=== PATIENT | male | born 1980 | race Caucasian/White ===

== ENCOUNTER 2019-08-02 13:17 | Emergency (ER) | payer MEDICAID ==
[~2019-08-02] VITALS: Ht 182.9 cm; Wt 88.9 kg
[2019-08-02 13:44] VITALS: BP_SYST 118
--- NOTE | 2019-08-02 13:52 | NUR ---
Placed in room 5. Placed on cardiac rehabilitation program director, blood pressure machine and pulse oximeter. To gown for exam. Side rails up. Report given to OLMAN Harris.
--- NOTE | 2019-08-02 14:00 | NUR ---
pt arrives from home w/ c/o cough, fever, and sore throat. Will continue to monitor.
--- NOTE | 2019-08-02 14:00 | NUR ---
ER at bedside examining patient.
--- NOTE | 2019-08-02 14:06 | NUR ---
flu swab collected and sent to the lab
--- NOTE | 2019-08-02 14:10 | NUR ---
pt getting a x-ray at the bedside.
[2019-08-02] MEDS ORDERED: ACETAMINOPHEN 500 MG TABLET PO ONE (14:15)
[2019-08-02] MEDS ORDERED: KETOROLAC TROMETHAMINE 60 MG/2 ML VIAL IM ONE (14:15)
--- NOTE | 2019-08-02 14:20 | NUR ---
medicated the pt w/ Toradol and tylenol per MD order.
[2019-08-02 14:39] LABS: STREPTOCOCCUS A SCREEN (RAPID) NEGATIVE (NEGATIVE)
[2019-08-02 14:48] LABS: INFLUENZA A&B ANTIGEN SCREEN NEGATIVE FOR A & B (NEGATIVE)
--- NOTE | 2019-08-02 16:45 | NUR ---
COVID-19 nasal and oralpharyngeal swabs collected and transported to the lab
[2019-08-02 16:56] VITALS: BP_SYST 106
--- NOTE | 2019-08-02 16:58 | NUR ---
Patient given written and verbal discharge instructions and verbalizes understanding. ER MD discussed with patient the results and treatment provided. Patient in stable condition. ID arm band removed. Rx of Zithromax, tamiflu, and motrin given. Patient educated on pain management and to follow up with PMD. Pain Scale 0/10. Opportunity for questions provided and answered. Medication side effect fact sheet provided. Addendum: 08/02/19 at 1700 by MYRON patient instructed to self quarantine until further notice.
== END 2019-08-02 16:56 | disposition home or self-care (01) ==
LOC: SED 13:17
DX: B34.9 Viral infection, unspecified (principal); J45.909 Unspecified asthma, uncomplicated
CPT/HCPCS: 71045; 86308; 86403; 86710; 87081; 96372; 99284; J1885; 36415

== ENCOUNTER 2019-08-06 11:21 | Emergency (ER) | payer MEDICAID ==
[~2019-08-06] VITALS: Ht 182.9 cm; Wt 88.9 kg
[2019-08-06 11:21] VITALS: BP_SYST 116
--- NOTE | 2019-08-06 11:21 | NUR ---
Patient to ER bed 7 to gown for evaluation. Side rails up. Report given to OLMAN Alfred.
--- NOTE | 2019-08-06 11:24 | NUR ---
Patient arrived via POV, AAOx4, and ambulatory with steady gait. Patient states he was seen on 08/02/2019 regarding persistent fever, which occurred sudden onset. Patient was given influenza screening, strep screening, and Covid-19 screening with no results as of yet. Patient notes for the past 2 days, he has had blood tinged sputum upon waking and coughing. No night sweats or recent weight loss noted. Patient states he was in [facility] in [place] for the past 4 years. Patient states he had a screening questionnaire in group home related to TB, but not PPD test performed. MD aware of concerns. Will continue to follow up and monitor.
--- NOTE | 2019-08-06 11:29 | NUR ---
ER at bedside examining patient.
[2019-08-06 12:22] LABS: BASOPHILS # (AUTO) 0.1 K/uL (0.0-0.2); BASOPHILS % (AUTO) 1.3 % (0.0-2.0); EOSINOPHILS # (AUTO) 0.4 K/uL (0.0-0.4); EOSINOPHILS % (AUTO) 4.8 % (0.0-4.0); HEMATOCRIT 37.3 % (36-54); HEMOGLOBIN 12.1 g/dL (14.0-18.0); LYMPHOCYTES # (AUTO) 1.8 K/uL (1.0-5.5); LYMPHOCYTES % (AUTO) 21.3 % (20.5-51.5); MEAN CORPUSCULAR HEMOGLOBIN 22 pg (27-31); MEAN CORPUSCULAR HGB CONC 32 % (32-36); MEAN CORPUSCULAR VOLUME 68 fL (79.0-98.0); MONOCYTES # (AUTO) 0.7 K/uL (0.0-1.0); MONOCYTES % (AUTO) 7.8 % (1.7-9.3); NEUTROPHILS # (AUTO) 5.5 K/uL (1.8-7.7); NEUTROPHILS % (AUTO) 64.8 % (40.0-70.0); PLATELET COUNT (AUTO) 266 K/uL (130-430); RED BLOOD CELL COUNT(AUTO) 5.49 MIL/uL (4.2-6.2); RED CELL DISTRIBUTION WIDTH 15.3 % (9.0-15.0); WHITE BLOOD COUNT (AUTO) 8.5 K/uL (4.8-10.8)
[2019-08-06 12:35] LABS: CALCIUM 9.5 mg/dL (8.4-11.0); CREATININE 1.08 mg/dL (0.55-1.30); POTASSIUM 3.9 mmol/L (3.5-5.1)
[2019-08-06 12:43] VITALS: BP_SYST 115
--- NOTE | 2019-08-06 12:43 | NUR ---
Patient given written and verbal discharge instructions and verbalizes understanding. ER MD discussed with patient the results and treatment provided. Patient in stable condition. ID arm band removed. Rx not given. Patient educated on pain management and to follow up with PMD. Pain Scale 0/10. Opportunity for questions provided and answered. Medication side effect fact sheet provided. Education provided that we will call for any positive results, and to remain at home for the next 14 days. Patient instructed to take OTC medications to treat symptoms, and to return if any increased SOB, or chest pain. If able to treat at home, remain at home. Drink plenty of fluids, and maintain a clean environment and wash hands frequently.
[2019-08-06 12:47] LABS: ALBUMIN 3.3 g/dL (3.4-4.8); TOTAL BILIRUBIN 0.6 mg/dL (0.0-1.0)
== END 2019-08-06 12:43 | disposition home or self-care (01) ==
LOC: SED 11:21
DX: J20.9 Acute bronchitis, unspecified (principal)
CPT/HCPCS: 36415; 80053; 85025; 86635; 99283